=== PATIENT | male | born 1965 | race Hispanic/Latino ===

== ENCOUNTER 2017-03-31 06:25 | Inpatient (IN) ==
[2017-03-26 16:50] LABS: Appearance,Urine CLEAR; Bilirubin,Urine NEG (NEG); Color,Urine YELLOW; Glucose,Urine (UA) NEGATIVE (NEG); Leukocyte Esterase,Urine NEG /uL (NEG); Nitrate,Urine NEG (NEG); Protein,Urine NEG (NEG); Specific Gravity,Urine 1.019 (1.000-1.035); Urine Blood NEG mg/dL (<0.03); Urobilinogen,Urine NEG (NEG)
[2017-03-26 17:15] LABS: Basophils # (Auto) 0 K/mcL (0.0-0.3); Basophils % (Auto) 0.5 % (0.0-2.0); Eosinophils # (Auto) 0.3 K/mcL (0.0-0.7); Eosinophils % (Auto) 4.9 % (0.0-7.0); Lymphocytes # (Auto) 2.7 K/mcL (1.5-4.8); Mean Cell Volume 87.7 fL (80.0-100.0); Mean Corpuscular HGB Conc 34.6 g/dL (31.0-36.0); Mean Corpuscular Hemoglobin 30.4 pg (26.0-34.0); Monocytes # (Auto) 0.7 K/mcL (0.1-0.9); Monocytes % (Auto) 9.6 % (1.0-12.0); Platelet Count 161 K/mcL (140-440); RBC 5.12 M/mcL (4.50-5.90); Red Cell Distribution Width 13.1 % (11.5-14.5)
[2017-03-26 17:31] LABS: Blood Urea Nitrogen 12 mg/dl (6-20)
[~2017-03-31 06:25] MED LIST: CELECOXIB 200 MG CAPSULE PO SCH; GABAPENTIN 400 MG CAPSULE PO SCH; ceFAZolin 1 GM VIAL IV SCH; oxyCODONE 10 MG TAB.ER.12H PO SCH
[2017-03-31] MEDS ORDERED: ROPIVACAINE HCL/PF 30 ML VIAL IJ ONE (11:45)
[2017-03-31] MEDS ORDERED: ONDANSETRON 4 MG/2 ML VIAL IV ONE (11:45)
[2017-03-31] MEDS ORDERED: NALBUPHINE 10 MG/ML AMPUL IV ONE (11:45)
[2017-03-31] MEDS ORDERED: SUCCINYLCHOLINE 20 MG/ML ML IV ONE (11:45)
[2017-03-31] MEDS ORDERED: ePHEDrine 50 MG/ML AMPUL IV ONE (11:45)
[2017-03-31] MEDS ORDERED: PROPOFOL 200 MG/20 ML VIAL IV ONE (11:45)
[2017-03-31] MEDS ORDERED: MIDAZOLAM 2 MG/2 ML VIAL IV ONE (11:45)
[2017-03-31] MEDS ORDERED: fentaNYL 100 MCG/2 ML VIAL IV ONE (11:45)
[2017-03-31] MEDS ORDERED: LIDOCAINE HCL/PF 100 MG/5 ML SYRINGE IV ONE (11:45)
[2017-03-31] MEDS ORDERED: TRANEXAMIC ACID 1,000 MG/10 ML VIAL IV ONE (11:45)
[2017-03-31] MEDS ORDERED: DEXAMETHASONE 10 MG/ML VIAL IV ONE (11:45)
[2017-03-31] MEDS ORDERED: GENTAMICIN SULFATE 800 MG/20 ML VIAL IR ONE (12:06)
[2017-03-31] MEDS ORDERED: FLUMAZENIL 0.1 MG/ML ML IV PRN (13:51)
[2017-03-31] MEDS ORDERED: PROMETHAZINE 25 MG/ML VIAL IV PRN (13:51)
[2017-03-31] MEDS ORDERED: IPRATROPIUM/ALBUTEROL 3 ML AMPUL.NEB NEB PRN (13:51)
[2017-03-31] MEDS ORDERED: METHOCARBAMOL 1,000 MG/10 ML VIAL IV PRN (13:51)
[2017-03-31] MEDS ORDERED: ONDANSETRON 4 MG/2 ML VIAL IV PRN ×3 (13:51→13:56)
[2017-03-31] MEDS ORDERED: NALOXONE HCL 0.4 MG/ML VIAL IV PRN (13:51)
[2017-03-31] MEDS ORDERED: BENZOCAINE/MENTHOL 1 LOZENGE PO PRN ×3 (13:51→13:56)
[2017-03-31] MEDS ORDERED: LACTATED RINGERS 250 ML IV PRN (13:51)
[2017-03-31] MEDS ORDERED: fentaNYL 100 MCG/2 ML VIAL IV PRN (13:51)
[2017-03-31] MEDS ORDERED: ACETAMINOPHEN 1,000 MG/100 ML BOTTLE IV ONE (13:51)
[2017-03-31] MEDS ORDERED: diphenhydrAMINE 50 MG/ML VIAL IV PRN (13:51)
[2017-03-31] MEDS ORDERED: MEPERIDINE 25 MG/ML SYRINGE IV PRN (13:51)
--- NOTE | 2017-03-31 13:51 | Brief Operative Note ---
Date of procedure: 03/31/17 Pre-op diagnosis: left shoulder osteoarthritis, ac arthritis, impingement, biceps tendonitis Post-op diagnosis: same Procedure: left total shoulder arthroplasty, distal clavicle excision, decompression, biceps tenodesis Grafts/Implants: Yes Anesthesia: GETA Complications: none Surgeon: Azael Brown Package Dyeing Machine Operator: Sallie Hi Estimated blood loss (cc): 150 Specimens Removed/Pathology: none sent Condition: stable Disposition: PACU
[2017-03-31] MEDS ORDERED: TRANEXAMIC ACID 1,000 MG/10 ML VIAL IV SCH (13:52)
[2017-03-31] MEDS ORDERED: BISACODYL 10 MG SUPP.RECT PR PRN ×2 (13:52→13:56)
[2017-03-31] MEDS ORDERED: POLYETHYLENE GLYCOL 3350 17 GM PACKET PO PRN ×2 (13:52→13:56)
[2017-03-31] MEDS ORDERED: FLEETS ADULT ENEMA PR PRN ×2 (13:52→13:56)
[2017-03-31] MEDS ORDERED: MAGNESIUM HYDROXIDE 30 ML ORAL.SUSP PO PRN ×2 (13:52→13:56)
--- NOTE | 2017-03-31 13:52 | Discharge Summary ---
Ortho Discharge - TSA - Patient Instructions Diet: Regular Diet Activity: non weight bearing Total Shoulder Protocol: Leave immobilizer in place except for bathing and ROM. Abduction pillow. Continue to wear sling until seen by physician. Codman Pendulum : These exercises use momentum produced by your body to move your shoulder joint. Bend your knees and shift your weight to your front leg, then back, allowing your arm to swing in the same directions. Using the same technique, alternately shift your weight between your right and left legs, allowing your arm to swing from side to side. These exercises are also performed in counterclockwise and clockwise circular motions. Typically these exercises are performed several times per day, for a set number repetitions or minutes, such as 20 times in a row or 5 minutes at a time. Dressing Care: May shower in 2 days - Follow Up Plan Disposition: Home, Self-Care Prognosis: Good Rehab Potential: Good I certify that the patient requires SNF services: No Overall status at discharge: patient is progressing back to baseline
[2017-03-31] MEDS ORDERED: ACETAMINOPHEN 325 MG TABLET PO PRN (13:56)
[2017-03-31] MEDS ORDERED: oxyCODONE/APAP 5/325MG TABLET PO PRN (13:56)
[2017-03-31] MEDS ORDERED: HYDROmorphone 2 MG/ML SYRINGE IV PRN (13:56)
[2017-03-31] MEDS ORDERED: ONDANSETRON ODT 4 MG TABLET SL PRN (13:56)
[2017-03-31] MEDS ORDERED: KETOROLAC 30 MG/ML VIAL IV PRN (13:56)
[2017-03-31] MEDS ORDERED: METHOCARBAMOL 750 MG TABLET PO PRN (13:56)
[2017-03-31] MEDS ORDERED: 0.9 % SODIUM CHLORIDE 10 ML SYRINGE IV SCH ×2 (14:00)
[2017-03-31] MEDS ORDERED: 0.9 % SODIUM CHLORIDE 1,000 ML IV SCH (14:00)
[2017-03-31] MEDS ORDERED: LACTATED RINGERS 1,000 ML IV SCH (14:00)
--- NOTE | 2017-03-31 14:33 | Operative Note ---
DATE OF OPERATION: 03/31/2017 PREOPERATIVE DIAGNOSES: 1. Left shoulder osteoarthritis. 2. Left shoulder acromioclavicular joint osteoarthritis. 3. Left shoulder proximal biceps tendinitis. 4. Left shoulder impingement with a type II acromion. POSTPERATIVE DIGNOSES: 1. Left shoulder osteoarthritis. 2. Left shoulder acromioclavicular joint osteoarthritis. 3. Left shoulder proximal biceps tendinitis. 4. Left shoulder impingement with a type II acromion. PROCEDURE: 1. Left total shoulder arthroplasty. 2. Left shoulder open distal clavicle excision. 3. Left shoulder open subacromial decompression and partial acromioplasty. 4. Left shoulder open soft tissue tenodesis proximal biceps tendon. SURGEON: Bobby Brown M.D. CHARGE HAND SURGEON: Sallie Hi PA-C. ANESTHESIA: General. ESTIMATED BLOOD LOSS: 100 mL. COMPLICATIONS: None noted. SPECIMENS REMOVED: None. DRAINS: None. IMPLANTS: [employer] Unite eccentric humeral head size 48 x 21; [employer] Unite Por[place]oat standard stem size 14; [employer] Unite anatomic proximal body 135 degrees size 14 Porocoat; [employer] [place] Peg Glenoid Premieron X-Linked polyethylene size 48. INDICATIONS: The patient has had a long-standing history of worsening pain in the shoulder that has failed conservative treatment. Radiographs have confirmed advanced degenerative joint disease. After a long discussion about treatment options, the patient elected to proceed with a total shoulder arthroplasty. The risks and benefits were discussed with the patient in detail including, but not limited to, the risks of anesthesia, problems with the heart or lungs related to anesthesia, infection, compromise or injury to the nerves and blood vessels, deep venous thrombosis, pulmonary embolism, pneumonia, continued pain after surgery, worsening pain or symptoms after surgery, swelling, loss of motion, instability, fracture, arm length discrepancy, and need for repeat surgery. DESCRIPTION OF PROCEDURE: The patient was seen in the pre-anesthesia waiting room where all questions were answered and the correct side and site were identified and marked. The patient was transferred to the operating room and administered the anesthetic and given pre-operative antibiotics. A time-out was then called. The patient was placed in the modified beach chair position with all prominences well padded. The extremity was prepped and draped from the fingers up to the neck. A standard deltopectoral skin incision was created. Dissection was carried down to the deltopectoral groove and the cephalic vein was isolated medially and retracted laterally with the deltoid. Retractors were placed and the coracobrachialis was split up to the coracoacromial ligament allowing retraction of the conjoined tendon. We split the subscapularis 1 cm medial to the bicipital groove and extended the split into the rotator interval. This was tagged for later repair. The biceps was cut and a soft tissue tenodesis was performed into the anterior shoulder with #2 FiberWire. A capsular release was performed in a posterior subperiosteal direction along the humerus. The humeral head was then dislocated. We established intramedullary access and hand reamed up to get good cortical chatter with the [email or web address] AP total shoulder instrumentation. We then used the intramedullary guide and set to about 30 degrees of retroversion. The proximal humerus cut was performed and osteophytes were removed. A metal protector plate was then placed. We then dissected through the subcutaneous tissue up to the acromioclavicular joint to the proximal aspect of the incision. We split the fascia overlying the distal clavicle and then peeled back anteriorly and posteriorly about a centimeter. We used a saw to cut 6 mm off of the end of the distal clavicle and then repaired the superior capsule with 0 Vicryl. We did digitally palpate to make sure that the resection was complete. We then used the saw as well as a rasp to remove about 3-4 mm of acromion where there was an anterior acromial spike. It was then palpated and found to be smooth and converted to a type I acromion. Attention was then turned to the glenoid. Retractors were placed for optimal visualization and the labrum was excised in its entirety. A centralizing Steinmann pin was placed just into the posterior inferior quadrant in a standard fashion. We reamed over the pin to remove all the cartilage and get to a good base for the prosthesis. The drill was then placed over for the central peg. The glenoid was sized and surface was inspected to confirm conformity. The template base-plate was used to drill the three additional pegs, anchoring each with the anti-rotation peg. All bleeding was stopped with epinephrine soaked sponges. Next, we then cemented the anchor peg glenoid with DBX bone paste placed around the anchor peg and Palacos cement in the three additional peg holes. We allowed the cement to harden and checked the stability and placement of the glenoid. Attention was then turned back to the humerus. We set version and broached up to a stable implant. The humeral head trial was placed and good tension, motion, and stability were obtained at this point. Trials were removed and the final press fit humeral prosthesis was impacted into place with measured version. A final check confirmed adequate motion, tension, and stability. We irrigated with 3 liters of antibiotic saline and closed the subscapularis with #2 FiberWire. We irrigated again and closed the deltopectoral interval with several 0 Vicryl figure of eight sutures. The subcutaneous layer was closed with 2-0 Vicryl and the skin was closed with 4-0 Monocryl in a subcuticular fashion. A sterile pressure dressing was applied and the patient was placed into an abduction sling. All needle and sponge counts were correct. The patient was transferred to the recovery room in stable condition. REINALDO:[email or web address] Job ID: [id number] Doc ID: [id number] Bobby Brown MD
[2017-03-31] MEDS ORDERED: GABAPENTIN 400 MG CAPSULE PO SCH (15:00)
--- NOTE | 2017-03-31 15:11 | XRay Report ---
CLINICAL INFORMATION: Postop shoulder prostheses COMPARISON: None. FINDINGS: Total shoulder prostheses is anatomically aligned. The distal 1 cm of the clavicle is absent and likely has been resected. Soft tissue swelling and gas seen as expected. IMPRESSION: Negative Interpreted and Authenticated by: Azael Harper 03/31/17
[2017-03-31] MEDS ORDERED: ceFAZolin 1 GM VIAL IV SCH (19:30)
[2017-03-31] MEDS ORDERED: SIMVASTATIN 20 MG TABLET PO SCH (21:00)
[2017-03-31] MEDS ORDERED: SENNOSIDES 1 TABLET PO SCH ×2 (21:00)
[2017-03-31] MEDS ORDERED: LISINOPRIL 10 MG TABLET PO SCH (21:00)
[2017-03-31] MEDS ORDERED: OMEPRAZOLE 20 MG CAPSULE PO SCH (21:00)
[2017-03-31] MEDS ORDERED: DOCUSATE SODIUM 100 MG CAPSULE PO SCH ×2 (21:00)
[2017-03-31] MEDS ORDERED: MULTIVIT,THER IRON,CA,FA & MIN 1 TABLET PO SCH (21:00)
== END 2017-03-31 19:40 | disposition home or self-care (01) | DRG 483 ==
LOC: MEDSUR 06:25
PROVIDERS: ADMIT Orthopaedic Surgery Sports Medicine; ATTEND Orthopaedic Surgery Sports Medicine